=== PATIENT | male | born 1950 | race Caucasian/White ===

== ENCOUNTER 2024-08-05 00:22 | Day surgery (SDC) | payer MEDICARE, SELFPAY ==
[2024-07-23 09:50] VITALS: BMI 34.7
--- NOTE | 2024-08-04 15:00 | WPDANESEPPF ---
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 Patient Data Age: 73 Gender: M Height: 1.75 m Weight: 106.6 kg Allergies Allergy/AdvReac Type Severity Reaction Status Date / Time No Known Allergies Allergy Verified 08/05/24 06:27 Home Medications ?Medication ?Instructions ?Recorded ?Confirmed ?Type albuterol sulfate 90 mcg/actuation 2 puff inhalation PRN 07/23/24 07/23/24 History aerosol inhaler amlodipine 5 mg tablet 5 mg PO DAILY 07/23/24 08/05/24 History aspirin 81 mg tablet,delayed 81 mg PO DAILY 07/23/24 08/05/24 History release (Adult Low Dose Aspirin) celecoxib 50 mg capsule 50 mg PO DAILY 07/23/24 08/05/24 History dapagliflozin propanediol 10 mg 10 mg PO DAILY 07/23/24 08/05/24 History tablet (Farxiga) finasteride 5 mg tablet 5 mg PO DAILY 07/23/24 08/05/24 History hydrochlorothiazide 25 mg tablet 25 mg PO DAILY 07/23/24 08/05/24 History losartan 100 mg tablet 100 mg PO DAILY 07/23/24 08/05/24 History omeprazole 20 mg capsule,delayed 20 mg PO DAILY 07/23/24 08/05/24 History release rosuvastatin 20 mg tablet 20 mg PO DAILY 07/23/24 08/05/24 History sertraline 100 mg tablet 100 mg PO DAILY 07/23/24 08/05/24 History tadalafil 20 mg tablet 20 mg PO PRN sexual activity 07/23/24 07/23/24 History umeclidinium 62.5 mcg-vilanterol 1 inh inhalation DAILY 07/23/24 08/05/24 History 25 mcg/actuation powdr for inhalation (Anoro Ellipta) Patient hx anesthesia problems: none Family hx anesthesia problems: none Results Review: All pre-operative results and documents have been reviewed as part of the pre-operative evaluation. [facility] Past Medical History Medical History (Updated 08/04/24 @ 15:00 by STEFF Zapata COPD (chronic obstructive pulmonary disease) History of heart attack 2002 Hyperlipidemia Hypertension Social History Social History Smoking packs per day: 1.5 Smoking cigarettes per day: 30.0 Smoking status: Former smoker Tobacco type: cigarettes Alcohol intake: former Drinks per week: 5 Alcohol use details: quit 1979 Substance use: never Spiritual care concerns: No Anes - Eval Final PreProcedure Day of Procedure 08/04/24 15:00 Patient weight: obese Heart: regular rate and rhythm Lungs: clear to auscultation Airway: Mallampati scale class II Neurological: alert and oriented Last oral intake: >/= 8 hours ASA classification: III Emergent: no Anesthetic plan: proceed Anesthesia type and monitoring: general GIVS and standard monitoring Results Review: All pre-operative results and documents have been reviewed as part of the pre-operative evaluation. Informed Consent: The patient's anesthetic plan and its attendant risks and benefits were discussed with the patient/family/POA. Questions were solicited and answers provided to the satisfaction of the patient/family/POA.
[2024-08-05] MEDS: LACTATED RINGERS 1,000 ML 150 ML IV CONT (06:26)
[2024-08-05 06:29] VITALS: BP 136/78; PULSE 73; RESP 16; TEMP 36.1; O2SAT 95
--- NOTE | 2024-08-05 07:29 | PM.HPGS ---
History of Present Illness History of Present Illness Consent: Risks, benefits, and alternatives have been discussed and questions answered. Patient agrees to proceed with procedure. Chief complaint: screeening malignant neoplasm colon Narrative: Noah Martínez is a 73 year old male here for screening colonoscopy, last one 10 years ago Review of Systems Review of Systems: All systems reviewed & are unremarkable except as noted in HPI and below PMFSH Past Medical History Medical History (Updated 08/05/24 @ 07:30 by Cali Heard MD) Colon cancer screening COPD (chronic obstructive pulmonary disease) History of heart attack 2002 Hyperlipidemia Hypertension Social History Social History Smoking packs per day: 1.5 Smoking cigarettes per day: 30.0 Smoking status: Former smoker Tobacco type: cigarettes Alcohol intake: former Drinks per week: 5 Alcohol use details: quit 1979 Substance use: never Spiritual care concerns: No Meds Home Medications and Allergies Home Medications ?Medication ?Instructions ?Recorded ?Confirmed ?Type albuterol sulfate 90 mcg/actuation 2 puff inhalation PRN 07/23/24 07/23/24 History aerosol inhaler amlodipine 5 mg tablet 5 mg PO DAILY 07/23/24 08/05/24 History aspirin 81 mg tablet,delayed 81 mg PO DAILY 07/23/24 08/05/24 History release (Adult Low Dose Aspirin) celecoxib 50 mg capsule 50 mg PO DAILY 07/23/24 08/05/24 History dapagliflozin propanediol 10 mg 10 mg PO DAILY 07/23/24 08/05/24 History tablet (Farxiga) finasteride 5 mg tablet 5 mg PO DAILY 07/23/24 08/05/24 History hydrochlorothiazide 25 mg tablet 25 mg PO DAILY 07/23/24 08/05/24 History losartan 100 mg tablet 100 mg PO DAILY 07/23/24 08/05/24 History omeprazole 20 mg capsule,delayed 20 mg PO DAILY 07/23/24 08/05/24 History release rosuvastatin 20 mg tablet 20 mg PO DAILY 07/23/24 08/05/24 History sertraline 100 mg tablet 100 mg PO DAILY 07/23/24 08/05/24 History tadalafil 20 mg tablet 20 mg PO PRN sexual activity 07/23/24 07/23/24 History umeclidinium 62.5 mcg-vilanterol 1 inh inhalation DAILY 07/23/24 08/05/24 History 25 mcg/actuation powdr for inhalation (Anoro Ellipta) Allergies Allergy/AdvReac Type Severity Reaction Status Date / Time No Known Allergies Allergy Verified 08/05/24 06:27 Vital Signs Vital Signs - 24 hr 08/05/24 06:29 Temperature 97 F L Pulse Rate 73 Respiratory Rate 16 Blood Pressure 136/78 Pulse Oximetry 95 Oxygen Delivery Room Air Exam Const: General: comfortable and no acute distress HENMT: Face/Nose/Sinus: Normal nares present Eyes: General: appearance normal, both eyes and all related structures Neck: Neck: no JVD Resp: Auscultation: clear to auscultation bilaterally Cardio: Rate: regular rate Rhythm: regular rhythm GI: Inspection: non-distended GI Palp: Yes Soft to palpation Skin: General skin exam: normal color Neuro: Speech: normal speech Extrem: General: normal to inspection Psych: Mental Status: mental status grossly normal Assessment and Plan Assessment and plan (1) Colon cancer screening: Code(s): Z12.11 - Encounter for screening for malignant neoplasm of colon Status: Acute Assessment and Plan: colonoscopy
[2024-08-05 07:46] VITALS: BP 97/67; PULSE 68; RESP 21; O2SAT 95
[2024-08-05 07:56] VITALS: BP 113/71; PULSE 71; RESP 23; O2SAT 96
[2024-08-05 08:06] VITALS: BP 127/73; PULSE 66; RESP 23; O2SAT 96
== END 2024-08-05 08:14 | disposition home or self-care (01) ==
PROVIDERS: PCP Family Medicine; Visit Provider Internal Medicine Gastroenterology
PROC: 0DJD8ZZ Inspection of Lower Intestinal Tract, Via Natural or Artificial Opening Endoscopic (ICD-10-PCS; CPT 45378; principal; 2024-08-05 07:30)
DX: Z12.11 Encounter for screening for malignant neoplasm of colon (principal); K64.8 Other hemorrhoids; K57.30 Diverticulosis of large intestine without perforation or abscess without bleeding; E78.5 Hyperlipidemia, unspecified; I10 Essential (primary) hypertension; J44.9 Chronic obstructive pulmonary disease, unspecified; I25.2 Old myocardial infarction; E66.9 Obesity, unspecified; Z68.34 Body mass index [BMI] 34.0-34.9, adult; Z79.82 Long term (current) use of aspirin; Z79.51 Long term (current) use of inhaled steroids; Z79.84 Long term (current) use of oral hypoglycemic drugs; Z87.891 Personal history of nicotine dependence
CPT/HCPCS: G0121; J2003; J2704; J7120

== ENCOUNTER 2025-03-10 13:20 | Outpatient (CLI) | payer MEDICARE, SELFPAY ==
--- OUTSIDE RECORDS SUMMARY | 2024-06-15 04:00 | XMS_ITS ---
Author Organization [facility] Address [address] [place] [address] Care Team Providers Care Cardiologist Name Role Phone Dr. Dinorah Wakefield Primary Care Provider [phone] Migration, Provider Unavailable Unavailable Allergies No Known Allergies REASON FOR VISIT EMR-[facility] Medications Medication SIG (Take, Route, Frequency, Duration) Notes Start Date End Date Status Sertraline HCl 100 MG Tablet 1 Oral every day; Duration: 03/18/2024 09/13/2024 Active diazePAM 5 MG Tablet 1-2 Oral every day; Duration: 0 03/10/2024 Active Farxiga 10 MG Tablet 1 Oral every day; Duration: 05/05/2024 10/31/2024 Active Celecoxib 50 MG Capsule 1 Oral every day ; Duration: 03/18/2024 09/13/2024 Active amLODIPine Besylate 5 MG Tablet 1 Oral every day; Duration: 03/18/2024 09/13/2024 Active Rosuvastatin Calcium 20 MG Tablet 1 Oral every day; Duration: 03/18/2024 09/13/2024 Active Losartan Potassium 100 MG Tablet 1 Oral every day; Duration: 03/18/2024 09/13/2024 Active Albuterol Sulfate HFA 108 (90 Base) MCG/ACT Aerosol Solution Inhalation; Duration: 0 12/19/2023 Active hydroCHLOROthiazide 25 MG Tablet 1 Oral every day; Duration: 05/05/2024 10/31/2024 Active Tadalafil 20 mg Tablet 1; Duration: 0 12/19/2023 Active Breztri Aerosphere inhalation; Duration: 0 *Pick strength-form from [facility] for eRX* 12/19/2023 Active Omeprazole 20 MG Capsule Delayed Release Oral; Duration: 0 03/10/2024 Active Aspirin 81 MG Tablet Chewable Oral; Duration: 0 10/09/2023 Active Social History Social History Additional Details Category Social Info Options Details Migrated Social History Migrated Social History Living arrangements:House , Employment:Retired , Tobacco history:Former smoker ,notes : 1.5 PPD for 35 years. Quit in 1999 , Number of years using tobacco:35 , Alcohol history :: ,notes : Not a drink , Date ceased smokin , Marital status: Encounters Encounter Location Date Provider Diagnosis [facility] [address] [place] [address] 06/15/2024 Provider Migration Plan Of Treatment Next Appt Details Provider Name:Dr. Dinorah kirby, 03/01/2026 10:30:00 AM, [facility] [address], [place], [address], [phone] Provider Name:Dr. Dinorah kirby, 03/03/2026 09:00:00 AM, [facility] [address], [place], [address], [phone] Progress Notes * Noah MIKEDOB:1950 (74 yo M)Acc No.[id number]:06/15/2024 Patient: Noah CIFUENTES :1950 A ge:73 Y S ex:Male Phone: Address:[address] [place] [address], [phone] Subjective: * Chief Complaints: * E MR-Charles * Surgical History: knee surgery ,notes : knee replacement Cardiac Catherization ,notes : 09/19/2006- 90% OM1, very small vessel; 50-60% proximal to mid sequential stenosis in the LAD; LI in RCA hip surgery ,notes : Hip replacement 1989 (after 1975 accident caused hip problem) & 1999 was 2nd full replacement. 2006 revision, all on the LEFT. Went to [facility] Dr. Padilla. Colonoscopy ,notes : Normal results, over 10 years ago. * Family History: Sharon edmond: Aneurysms. * Social History: M igrated Social History: M igrated Social History: Living arrangements:House,Employment:Retired,Tobacco history:Former smoker ,notes : 1.5 PPD for 35 years. Quit in 1999,Number of years using tobacco:35,Alcohol history :: ,notes : Not a drink,Date ceased smokin,Marital status:. * Medications: T akingamLODIPine Besylate 5 MG Tablet 1 Oral every day , stop date 09/13/2024Rosuvastatin Calcium 20 MG Tablet 1 Oral every day , stop date 09/13/2024reztri Aerosphere inhalation , Notes to Pharmacist: *Pick strength- form from [facility] for eRX*Celecoxib 50 MG Capsule 1 Oral every day , stop date 09/13/2024Tadalafil 20 mg Tablet 1 Farxiga 10 MG Tablet 1 Oral every day , stop date 10/31/2024hydroCHLOROthiazide 25 MG Tablet 1 Oral every day , stop date 10/31/2024Omeprazole 20 MG Capsule Delayed Release Oral Aspirin 81 MG Tablet Chewable Oral diazePAM 5 MG Tablet 1-2 Oral every day Albuterol Sulfate HFA 108 (90 Base) MCG/ACT Aerosol Solution Inhalation Losartan Potassium 100 MG Tablet 1 Oral every day , stop date 09/13/2024Sertraline HCl 100 MG Tablet 1 Oral every day , stop date 09/13/2024Taking amLODIPine Besylate 5 MG Tablet 1 Oral every day , stop date 09/13/2024Taking Rosuvastatin Calcium 20 MG Tablet 1 Oral every day , stop date 09/13/2024Taking Breztri Aerosphere inhalation , Notes to Pharmacist: *Pick strength-form from [facility] for eRX*Taking Celecoxib 50 MG Capsule 1 Oral every day , stop date 09/13/2024Taking Tadalafil 20 mg Tablet 1 Taking Farxiga 10 MG Tablet 1 Oral every day , stop date 10/31/2024Taking hydroCHLOROthiazide 25 MG Tablet 1 Oral every day , stop date 10/31/2024Taking Omeprazole 20 MG Capsule Delayed Release Oral Taking Aspirin 81 MG Tablet Chewable Oral Taking diazePAM 5 MG Tablet 1-2 Oral every day Taking Albuterol Sulfate HFA 108 (90 Base) MCG/ACT Aerosol Solution Inhalation Taking Losartan Potassium 100 MG Tablet 1 Oral every day , stop date 09/13/2024Taking Sertraline HCl 100 MG Tablet 1 Oral every day , stop date 09/13/2024 * Allergies: N .K.D.A. * * Date:
--- OUTSIDE RECORDS SUMMARY | 2025-03-10 13:26 | XMS_ITS | Patient Health Record ---
Author Organization [facility] Address [address] [place] [id number] Care Team Providers Care Senior Infrastructure Architect Name Role Phone Dr. Dinorah Wakefield Primary Care Provider [phone] Leona Springer Unavailable [phone] Migration, Provider Unavailable Unavailable Allergies No Known Allergies Results Component Value Reference Range Flag Notes Muscle Specific Kinase (MuSK ) IgG Ab CBA, with Rflx-ARUP Reviewed date:03/29/2024 12:00:00 AM Interpretation: Performing Lab: Notes/Report: Muscle Specific Kinase (MuSK) IgG Ab CBA, with Rflx See Below Myasthenia Gravis Reflexive Panel-ARUP Reviewed date:03/29/2024 12:00:00 AM Interpretation: Performing Lab: Notes/Report: Myasthenia Gravis Reflexive Pnl See Below T4 Free Reviewed date:03/02/2025 09:38:17 PM Interpretation: Performing Lab: Notes/Report: Test Performed by: [place] [id number] Lab Systems Analyst: Fredo White DO T4 Free 0.60 0.60-1.70 ng/dL CBC w Auto Diff Reviewed date:03/02/2025 09:38:18 PM Interpretation: Performing Lab: Notes/Report: Test Performed by: [place] [id number] Lab Systems Analyst: Fredo White DO WBC 4.7 4.0-11.7 K/mcL RBC 5.49 4.28-5.56 x10*6/mcL Hgb 15.7 13.0-17.0 g/dL Hct 47.2 38.1-48.9 % MCV 86.0 83.4-98.1 fL MCH 28.6 27.0-34.2 pg MCHC 33.3 31.8-35.3 g/dL RDW 14.4 12.0-16.4 % Platelets 185 149-393 K/mcL MPV 9.3 7.0-11.0 fL Segs Man 65.0 45.3-79.0 % Band Man 2.0 0.0-6.0 % Lymph Man 17.0 11.8-45.9 % Monocyte Man 7.0 4.4-12.9 % Eos Man 5.0 0.0-6.3 % Basophil Man 2.0 0.0-1.0 % H Neut Absolute Manual 3.1 Lymph Absolute Manual 0.8 [place] Absolute Manual 0.3 Eos Absolute Manual 0.2 Baso Absolute Manual 0.1 [place] Man 2.0 0.0-0.0 % H Comprehensive Metabolic Pane l Reviewed date:03/02/2025 09:38:18 PM Interpretation: Performing Lab: Notes/Report: Test Performed by: [place] [address] Lab Systems Analyst: Fredo White DO Glucose Lvl 97 74-109 mg/dL ADA risk stratification for diabetes <100 mg/dL = Normal 100-125 mg/dL = Increased risk for future diabetes >=126 mg/dL = Diabetes, if on more than one testing occasion BUN 25 7-25 mg/dL Creatinine Lvl 0.91 0.70-1.30 mg/dL eGFR CKD-EPI 88 >=90 mL/min/1.73 m2 L The CKD-EPI equation is validated in individuals 18 years of age and older. It is less accurate in patients with extremes of muscle mass, restriction of dietary protein, ingestion of creatine, extra-renal metabolism of creatinine, or treatment with medications that affect renal tubular creatinine secretion. GFR Categories in Chronic Kidney Disease (CKD) GFR GFR (mL/min/1.73 Category: square meters): Interpretation: G1 90 or greater Normal or high* G2 60-89 Mild decrease* G3a 45-59 Mild to moderate decrease G3b 30-44 Moderate to severe decrease G4 15-29 Severe decrease G5 14 or less Kidney failure *In the absence of evidence of kidney damage, neither GFR category G1 nor G2 fulfill the criteria for CKD (Kidney Int Suppl 2013;3:1-150) Calcium Lvl 9.2 8.6-10.3 mg/dL Sodium Lvl 139 136-145 mmol/L Potassium Lvl 3.9 3.5-5.1 mmol/L Chloride Lvl 105 98-107 mmol/L CO2 29 21-31 mmol/L Anion Gap 4.9 <=16.0 mmol/L Alk Phos 73 34-104 unit/L Bilirubin Total 0.5 0.3-1.0 mg/dL Albumin Lvl 4.3 3.5-5.2 g/dL Protein Total 6.7 6.4-8.9 g/dL Albumin/Globulin Ratio 1.8 1.1-2.5 ALT 16 7-52 unit/L AST 18 13-39 unit/L Lipid Panel {Chol, Trig, HDL , LDL} Reviewed date:03/02/2025 09:38:18 PM Interpretation: Performing Lab: Notes/Report: Test Performed by: [place] [address] Lab Systems Analyst: Fredo White DO Cholesterol Total 162 <=199 mg/dL Triglycerides 166 0-149 mg/dL H Triglyceride Reference Ranges: <150 mg/dL Normal 150 - 199 mg/dL Borderline High 200 - 499 mg/dL High >=500 mg/dL Very High LDL 92 <=100 mg/dL LDL Optimal: <100 Near or above optimal: 100-129 Borderline high: 130-159 High: 160-189 Very high: >=190 Coronary heart disease risk factors should be considered when determining LDL goals. Please refer to ATPIII guidelines for further information. If LDL is not calculated, please call the lab to add on the direct LDL methodology, if desired. HDL 37 23-92 mg/dL Non HDL Cholesterol 125 <=130 mg/dL Chol/HDL 4 0-5 Thyroid Stimulating Hormone Reviewed date:03/02/2025 09:38:18 PM Interpretation: Performing Lab: Notes/Report: Test Performed by: [place] [id number] Lab Systems Analyst: Fredo White DO TSH 1.92 0.45-5.33 mcIU/mL Vitamin B12 Reviewed date:03/02/2025 09:38:18 PM Interpretation: Performing Lab: Notes/Report: Test Performed by: [place] [address] [address] Lab Systems Analyst: Fredo White DO Vitamin B12 Lvl 246 180-914 pg/mL Vitamin B12 Interpretation: Normal Range: 180-914 pg/mL Indeterminate: 140-180 pg/mL Deficient: <140 pg/mL PSA Annual Screening Reviewed date:03/02/2025 09:38:18 PM Interpretation: Performing Lab: Notes/Report: Test Performed by: [place] [address] Lab Systems Analyst: Fredo White DO PSA Total 8.83 0.00-4.00 ng/mL H CT Scan : Chest without cont rast Reviewed date:01/26/2025 03:41:47 PM Interpretation: Performing Lab: Notes/Report: Electrocardiogram (EKG) Reviewed date:03/07/2025 01:56:32 PM Interpretation:Abnormal Performing Lab: Notes/Report: Abnormal Reason For Referral Reason Dr. Angy Chavis is previous patient. Diagnosis 1 Elevated PSA (R97.20 ) Referral Organization [facility] Referring Provider First Name Dr. Copeland Referring Provider Last Name [place] Referring Provider [facility] Referred Provider Specialty Urology Referral Priority Routine Medications Medication SIG (Take, Route, Frequency, Duration) Notes Start Date End Date Status Finasteride 5 MG Tablet 1 tablet Orally Once a day; Duration: 90 days Active Tadalafil 20 mg Tablet 1; Duration: 0 12/19/2023 Active Sertraline HCl 100 MG Tablet 1 Oral ever y day; Duration: 90 Active hydroCHLOROthiazide 25 MG Tablet TAKE 1 TABLET BY MOUTH EVERY DAY Orally Once a day; Duration: 90 days Active Anoro Ellipta 62.5-25 MCG/AC T Aerosol Powder Breath Activated 1 puff Inhalation Once a day Active amLODIPine Besylate 5 MG Tablet 1 tablet Orally Once a day; Duration: 90 days Active Albuterol Sulfate HFA 108 (9 0 Base) MCG/ACT Aerosol Solution Inhalation; Duration: 0 12/19/2023 Active Omeprazole 20 MG Capsule Delayed Release Oral; Duration: 0 03/10/2024 Active CeleBREX 50 MG Capsule 1 capsule Orally Once a day; Duration: 90 days Active Aspirin 81 MG Tablet Chewable Oral; Duration: 0 Active Farxiga 10 MG Tablet 1 Oral every day; Duration: 90 Active Losartan Potassium 100 MG Tablet TAKE 1 TABLET BY MOUTH EVERY DAY Orally Once a day; Duration: 90 days Active Rosuvastatin Calcium 20 MG Tablet TAKE 1 TABLET BY MOUTH EVERY DAY Orally Once a day; Duration: 90 days Active Immunizations Vaccine Route Administration Date Status Comme nts Influenza, high dose seasonal IM Intramuscular 05/13/2024 Administered ,sourcename : N ew immunization record ,immstatus : Complete Influenza, seasonal, injectable, preservative free, 3 yrs and above Unknown 06/11/2023 Administered ,sourcename : Pharmacy Source VFC Code: : Moderna Covid-19 Vaccine 1st dose Unknown 08/17/2020 Administered ,sourcename : Pharmacy Source VFC Code: : Moderna Covid-19 Vaccine 1st dose Unknown 09/15/2020 Administered ,sourcename : Pharmacy Source VFC Code: : Moderna Covid-19 Vaccine 1st dose Unknown 07/04/2021 Administered ,sourcename : Pharmacy Source VFC Code: : Pfizer-Biontech Covid-19 Vaccine 1st dose IM Intramuscular 05/13/2024 Administered ,sourcename : N ew immunization record ,immstatus : Complete Pneumococcal conjugate PCV 13 Unknown 06/26/2016 Administered ,sourcename : Pharmacy Source VFC Code: : Pneumococcal polysaccharide PPV23 Unknown 06/16/2016 Administered ,sourcename : Pharmacy Source VFC Code: : Tdap Unknown 02/12/2018 Administered ,sourcename : Pharmacy Source VFC Code: : Zoster Unknown 04/05/2020 Administered shingrix ,sourcename : Pharmacy Source VFC Code: : Zoster Unknown 06/15/2020 Administered shingrix ,sourcename : Pharmacy Source VFC Code: : Social History Social History Additional Details Category Social Info Options Details Migrated Social History Migrated Social History Employment:Retired , Marital status: , Tobacco history:Former smoker ,notes : 1.5 PPD for 35 years. 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) Active confirmed Problem Essential hypertensi on (20091114) Essential (primary) hypertension (I10) Active confirmed Problem Atherosclerotic hear t disease of [place] coronary artery without angina pectoris (666691752503133) Atherosclerotic heart disease of [place] coronary artery without angina pectoris (I25.10) Active confirmed Problem Old myocardial infarction (5080140) Old myocardial infarction (I25.2) Active confirmed Problem Vitiligo (26404115) Vitiligo (L80) Active confirmed Problem Osteoarthritis (966946962) Polyosteoarthriti s, unspecified (M15.9) Active confirmed Problem Cervical spondylosis without myelopathy (814690628) Spondylosis without myelopathy or radiculopathy, cervical region (M47.812) Active confirmed Problem Spinal stenosis in cervical region (20431680) Spinal stenosis, cervical region (M48.02) Active confirmed Problem Displacement of lumb ar intervertebral disc without myelopathy (45864042) Other intervertebral disc displacement, lumbar region (M51.26) Active confirmed Problem Pure hypercholesterolemia (853939161) Pure hypercholesterole monika, unspecified (E78.00) Active confirmed Problem Body mass index 30.0 0 to 34.99 (394221985893105) Body mass index (BMI) 34.0-34.9, adult (Z68.34) Active confirmed Problem Lumbosacral spondylosis without myelopathy (85062689) Spondylosis without myelopathy or radiculopathy, lumbar region (M47.816) Active confirmed Problem 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 Problem Enlarged prostate (952042025) Enlarged prostate without lower urinary tract symptoms (N40.0) Active confirmed Problem Nicotine dependence (85775351) Personal history of nicotine dependence (Z87.891) Active confirmed Problem Erectile dysfunction (disorder) (906271030) Male erectile dysfunction, unspecified (N52.9) Active confirmed Problem Nail dystrophy (17933748) 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) Active confirmed Problem Disorder of nasal sinus (disorder) (1808023) Other specified disorders of nose and nasal sinuses (J34.89) Active confirmed Vital Signs Heart Rate 63 /min 03/06/2025 Temperature 97.2 degrees Fahrenheit 03/06/2025 Respiratory Rate 18 /min 03/06/2025 Height-cm 175.26 cm 03/06/2025 Oximetry 94 % 03/06/2025 Blood pressure diastolic 66 mm Hg 03/06/2025 Weight-kg 107.5 kg 03/06/2025 Height 69.00 in 03/06/2025 Blood pressure systolic 116 mm Hg 03/06/2025 Weight 237 lbs 03/06/2025 BMI 34.99 kg/m2 03/06/2025 Procedures Procedure Date Ordered Date Performed Result Body Sit e Colonoscopy 08/05/2024 08/05/2024 Normal; no need to repea t Encounters Encounter Location Date Provider Diagnosis [address] [address] 03/10/2024 Dr. Dinorah Wakefield Paresthesia of skin R20.2 ; Pain in left arm M79.602 ; Heteronymous bilateral field defects H53.47 ; Cervicalgia M54.2 and Headache, unspecified R51.[address] [address] 03/25/2024 Provider Migration Paresthesia of skin R20.2 ; Spondylosis without myelopathy or radiculopathy, cervical region M47.812 and Spinal stenosis, cervical region M48.[address] [address] 04/14/2024 Leona Springer Other specified disorders of nose and nasal sinuses J34.89 and Cough, unspecified R05.[address] [address] 05/13/2024 Dr. Dinorah Wakefield Encounter for immunization Z23 [address] [address] 03/06/2025 Dr. Dinorah Wakefield Encounter for general adult medical examination without abnormal findings Z00.00 ; Prediabetes R73.03 ; Elevated PSA R97.20 ; Urinary frequency R35.0 ; Essential (primary) hypertension I10 ; Vitamin B12 deficiency E53.8 ; Sinus arrhythmia I49.8 ; Atherosclerotic heart disease of [place] coronary artery without angina pectoris I25.10 ; Hyperlipidemia, unspecified E78.5 ; Spinal stenosis, cervical region M48.02 ; Bronchiectasis, uncomplicated J47.9 ; Renal cyst N28.1 ; Obesity (BMI 30.0-34.9) E66.811 and Mild depression F32.A [address] [address] 06/14/2024 Provider Migration [address] [address] 06/15/2024 Provider Migration [address] [address] 10/16/2024 Dr. Dinorah Wakefield [address] [address] 10/17/2024 Dr. Dinorah Wakefield [address] [address] 10/17/2024 Dr. Dinorah Wakefield [address] [address] 10/24/2024 Dr. Dinorah Wakefield [address] [address] 12/22/2024 Dr. Dinorah Wakefield [address] [address] 03/02/2025 Dr. Dinorah Wakefield Hyperlipidemia, unspecified E78.5 ; Essential (primary) hypertension I10 ; Encounter for general adult medical examination without abnormal findings Z00.00 and Screening PSA (prostate specific antigen) Z12.[address] [address] 02/23/2025 Dr. Dinorah Wakefield [address] [address] 02/26/2025 Dr. Dinorah Wakefield Assessments Encounter Date Diagnosis (ICD Code) Assessment Notes Treatment Notes Treatment Clinical Notes Section Notes 03/02/2025 Hyperlipidemia, unspecified (ICD-10 - E78.5) 03/06/2025 Encounter for general adult medical examination without abnormal findings (ICD-10 - Z00.00) PHQ-9 done today. 5 mins spent reviewing and discussing answers. REc RSV vaccine 40 mins spent with patient today. 03/06/2025 Prediabetes (ICD-10 - R73.03) Discussed prediabetes diagnosis. Recommend lower carb diet, higher protein diet, exercise and routines, weightlifting exercise, as appropriate for age and physique, as well as staying hydrated. Recommended recheck labs in proximally six months at the next checkup. Discussed hemoglobin A1c is 6.5 or higher is diabetes and we should try to regress the condition into the normal sugar range for averages. 05/13/2024 Encounter for immunization (ICD-10 - Z23) 04/14/2024 Other specified disorders of nose and nasal sinuses (ICD-10 - J34.89) 04/14/2024 Cough, unspecified (ICD-10 - R05.9) 03/25/2024 Spondylosis without myelopathy or radiculopathy, cervical region (ICD-10 - M47.812) 03/25/2024 Spinal stenosis, cervical region (ICD-10 - M48.02) 03/25/2024 Paresthesia of skin (ICD-10 - R20.2) 03/10/2024 Heteronymous bilateral field defects (ICD-10 - H53.47) 03/10/2024 Cervicalgia (ICD-10 - M54.2) 03/10/2024 Pain in left arm (ICD-10 - M79.602) 03/10/2024 Paresthesia of skin (ICD-10 - R20.2) 03/10/2024 Headache, unspecified (ICD-10 - R51.9) 03/06/2025 Elevated PSA (ICD-10 - R97.20) Elevated PSA: - Elevated PSA despite finasteride therapy, increased from prior values, concerning for possible underlying pathology. - Ordered repeat PSA at hospital-based lab for confirmation due to possible lab error. - Referred to urology (Dr. Vang) for further evaluation, including possible prostate MRI and additional workup. 03/02/2025 Essential (primary) hypertension (ICD-10 - I10) 03/02/2025 Encounter for general adult medical examination without abnormal findings (ICD-10 - Z00.00) 03/06/2025 Urinary frequency (ICD-10 - R35.0) Bladder dysfunction/urinary urgency and incomplete emptying: - Urinary urgency and incomplete bladder emptying, likely multifactorial including prostatic enlargement and medication effects. - Advised to discontinue hydrochlorothiazide and monitor blood pressure; will reassess at follow-up. - Discussed possible initiation of tamsulosin if indicated by urology. - Referred to urology for further evaluation. - Discussed caffeine intake and medication effects as contributing factors. - Advised to monitor symptoms and report any worsening. -On Finasteride - needd to make sure that he doesn't have prostate cancer. 03/06/2025 Essential (primary) hypertension (ICD-10 - I10) Stopping HCTZ and should monitor when here for B12 shots and also should get meter at home. Goal less than 130/80. 03/02/2025 Screening PSA (prostate specific antigen) (ICD-10 - Z12.5) 03/06/2025 Vitamin B12 deficiency (ICD-10 - E53.8) B12 deficiency: - B12 deficiency contributing to fatigue and possible cognitive symptoms. - Administered B12 injection today. Plan for weekly B12 injections for 4 weeks. - Improvement in energy and cognitive symptoms expected with treatment. Short-term memory concerns: - Short-term memory impairment possibly related to B12 deficiency and/or mild depression. - Addressing B12 deficiency with injections. Discussed potential benefit of wellbutrin for cognitive symptoms if indicated. 03/06/2025 Sinus arrhythmia (ICD-10 - I49.8) Irregular heart rhythm: - Intermittent irregular heart rhythm noted on blood pressure measurement, asymptomatic. - Performed EKG during visit for further evaluation. -EKG shows sinus arrhythmia. 03/06/2025 Atherosclerotic heart disease of [place] coronary artery without angina pectoris (ICD-10 - I25.10) 03/06/2025 Hyperlipidemia, unspecified (ICD-10 - E78.5) 03/06/2025 Spinal stenosis, cervical region (ICD-10 - M48.02) Cervical spine arthropathy with foraminal stenosis, spondylolisthesis, and kyphosis: - Mechanical neck pain and cervical radiculopathy due to advanced degenerative changes, with no current indication for surgical intervention. - Continue conservative management with physical therapy and neck traction as needed; patient may do physical therapy as many times a year as needed. - Monitor for worsening symptoms such as arm weakness, tingling, severe neck pain, or balance issues; if present, repeat MRI and consider neurosurgical evaluation. - Offered option of steroid injections for pain if needed. - Advised to avoid falls and neck trauma. 03/06/2025 Bronchiectasis, uncomplicated (ICD-10 - J47.9) Bronchiectasis and stable lung nodules: - Stable bronchiectasis with no acute pulmonary findings. - Continue current management with puller over. No acute intervention required. -continue anoro and pulm f/u. -REcent CT was OK with no acute changes 03/06/2025 Renal cyst (ICD-10 - N28.1) Simple right kidney cyst: - Simple renal cyst, decreased in size, not concerning for malignancy. - No further imaging or monitoring required. Incicentally found on CT chest f/u imaging. 03/06/2025 Obesity (BMI 30.0-34.9) (ICD-10 - E66.811) Weight management and possible prediabetes: - Ongoing weight management difficulties, possible progression from prediabetes to diabetes. - Ordered A1c and thyroid labs to assess glycemic control and thyroid function. - Discussed behavioral strategies for weight loss including slowing eating and drinking water before meals. - Discussed pharmacologic options including wellbutrin, pending lab results. - Offered B12 injections to improve energy and potentially aid weight loss. - Patient declined weight loss medications at this time. 03/06/2025 Mild depression (ICD-10 - F32.A) Mild depression: - Mild depression, stable on sertraline, with PHQ-9 score of 7. - Discussed possible addition of wellbutrin to address mood, appetite, and focus, pending lab results and patient preference. 03/06/2025 Other DON:Based on our discussion, I have outlined the following instructions for you: - Consider physical therapy again for your neck as needed. You can do physical therapy as many times as you need during the year. - Watch for any new or worsening symptoms such as weakness in your arms, tingling, severe neck pain, or problems with balance. If you notice any of these, let me know right away so we can consider repeat MRI on your neck. - If your neck pain becomes hard to manage, you can ask about getting a steroid injection to help with the pain through pain management. - Be careful to avoid falling or hurting your neck. - Keep following your current lung care plan with your lung specialist. No new treatments are needed right now. - A kidney cyst was noted on your chest CT - it seems to have decreased and shouldn't need to be followed up on. - Get the blood tests that were ordered to check your blood sugar and thyroid. - Try to eat more slowly and drink water before meals to help with weight loss. - If you feel you need more help with weight loss, you can ask about other options, including certain medications, after your lab results are ready. - You can get B12 injections to help with your energy and possibly with weight loss. We gave you one today and you need to return WEEKLY for 3 more weeks and then will go to once monthly. Your levels were low and replacement could help with memory as well - Get your PSA blood test repeated at the hospital lab to double-check your results. I suggest [facility] or [facility] Bishop in [place]. - See a urology specialist for further evaluation, which may include additional tests such as a prostate MRI, for your elevated PSA. - Stop taking hydrochlorothiazide and keep track of your blood pressure. - If your urology specialist thinks it is needed, you may start a medication called tamsulosin. We discussed this but will wait until you see urology. - Be aware that caffeine and some medications can affect your bladder symptoms. - Pay attention to your symptoms and let your healthcare team know if they get worse. - An EKG was done during your visit to check your heart rhythm. -When you come for B12 shots, we should check your blood pressure. Goal is less than 130/80. If it's elevated off of the hydrochlorothiazide, then we will have to change your BP meds. Next appointment(s): - Follow-up appointment in about a week for another B12 shot. Plan Of Treatment Pending Test Test Name Order Date Hemoglobin A1c 03/06/2025 Magnesium, Serum 03/06/2025 Thyroxine (T4) Free, Direct, S TSH 03/06/2025 PSA, total 03/06/2025 Hemoglobin A1c {Glycosylated} 03/02/2025 Vitamin D 25 Hydroxy 03/02/2025 Next Appt Details Provider Name:Dr. Dinorah kirby, 03/01/2026 10:30:00 AM, [address], [place], [address], [phone] Provider Name:Dr. Dinorah kirby, 03/03/2026 09:00:00 AM, [address], [place], [address], [phone] Insurance Providers Payer Name Payer Address Payer Phone Subscriber Number Group Number Insured Name Patient Relationship to Insured Coverage Start Date Coverage End Date [employer] Attn Claims Department [address] [address] [place] [address] [id number] Noah Martínez Self - patient is the insured Medications Administered Medication Instructions Date of Administration Dosage Notes B12 03/06/2025 1000 ug Medical (General) History Medical History History ICD Code Obesity, unspecified E66.9 Hyperlipidemia, unspecified E78.5 Essential (primary) hypertension I10 Atherosclerotic heart diseas e of [place] coronary artery without angina pectoris I25.10 Old myocardial infarction I25.2 Alopecia universalis L63.1 Vitiligo L80 Polyosteoarthritis, unspecified M15.9 Personal history of nicotine dependence Z87.891 Heteronymous bilateral field defects H53 .47 Male erectile dysfunction, unspecified N 52.9 Pure hypercholesterolemia, unspecified E 78.00 Surgical History Surgery Date(Month/Year) hip surgery ,notes : Hip rep lacement 1989 (after 1975 accident caused hip problem) & 1999 was 2nd full replacement. 2007 revision, all on the LEFT. Went to [facility] Dr. Padilla. knee surgery ,notes : knee replacement Cardiac Catherization ,notes : 09/19/2006- 90% OM1, very small vessel; 50-60% proximal to mid sequential stenosis in the LAD; LI in RCA Colonoscopy ,notes : Normal results, paul desai 10 years ago.
--- OUTSIDE RECORDS SUMMARY | 2025-03-10 13:26 | XMS_ITS | Clinical Summary ---
Author Organization [facility] Address [address] [place] [address] Care Team Providers Care Nanoscience Technician Name Role Phone Mitra Ibarra INDUSTRIAL TRACTOR DRIVER-HORSE SHOW MANAGER Primary Care Provider [phone] Source Comments [facility],non-owned Affiliates and Associated Physician Practices is amultiple site organization consisting of ambulatory clinics and hospital sitesin [place], [place], [place] and [place]. This disclosure is being madepursuant to the Care Everywhere program and may not contain all information available regarding this patient. Last updated 18.[facility] Allergies No known active allergies Medications * Be aware that medications may not be up to date on this document. Alwaysverify current medications with the patient. amLODIPine (NORVASC) 5 MG tablet Take 5 mg by mouth once daily Active rosuvastatin (CRESTOR) 10 MG tablet Take 10 mg by mouth once daily Active finasteride (PROSCAR) 5 MG tablet Take 5 mg by mouth once daily Active sertraline (ZOLOFT) 100 MG tablet Take 100 mg by mouth once daily Active aspirin (ASPIRIN) 81 MG tablet Take 81 mg by mouth once daily Active losartan-hydroCH LOROthiazide (HYZAAR) 100-12.5 MG tablet Take 1 tablet by mouth once daily Active Active Problems Problem Noted Date Diagnosed Date Non morbid obesity due to excess calories 2019 Coronary artery disease invo lving [place] coronary artery of [place] heart without angina pectoris 08/14/2019 Overview (08/14/2019): Echocardiogram 10/04/2018: 1. Normal left ventricular cavity size with mild concentric hypertrophy. There is hyperdynamic left ventricular systolic function with ejection fraction measured by Oquendo's biplane method at 73%. Normal left ventricular diastolic function for age as measured by tissue Doppler/Mitral Doppler indices. 2. Mildly dilated right ventricle with normal right ventricular systolic function. 3. Normal right ventricular systolic pressure with estimated Peak RVSP of 27.3 mmHg. 4. Normal inferior vena cava appearance and respiratory collapse. 5. No hemodynamically significant valvular abnormalities seen on Doppler exam. Cardiac PET Stress 10/04/2018: 1. The patient's test results are abnormal, and consistent with mild reversible ischemia in the distribution of the left circumflex/OM territory as described above. 2. Normal global LV systolic function. 3. Coronary Flow Rush: 2.36 (coronary flow reserve > 2.0 is considered to be normal). 4. Total Agatston score (calcium score) is 1396, which places the patient at the 92nd percentile of an aged and gender matched cohort. 5. No priors for comparison. 6. Please refer to separately reported ECG report from the same day regarding ECG and hemodynamic findings. Cardiac catheterization 09/19/2006: 1. 90% OM1, very small vessel < 2 mm in diameter. 2. 50-60% proximal to mid sequential stenosis in the LAD 3. LI in the RCA Old DC (myocardial infarction) 08/14/2019 Essential hypertension 08/14/2019 Hypercholesteremia 08/14/2019 Family History Medical History Relation Name Comments Other Brother 1 pancreatitis Cancer - Other Father Other Mother pancreatitis Other Sister pancreatitis Relation Name Status Comments Brother 1 Alive Brother 2 Alive Brother 3 Alive Brother 4 Father Maternal Grandfather Maternal Grandmother Mother Paternal Grandfather Paternal Grandmother Sister Social History Tobacco Use Types Packs/Day Years Used Date Smoking Tobacco: Former Cigarettes 1 35 Comments:Quit 20 years ago Alcohol Use Standard Drinks/Week Comments Not Currently 0 (1 standard drink = 0.6 oz pur e alcohol) Quit 20 years ago Sex and Gender Information Value Date Recorded Sex Assigned at Not on file Legal Sex Male 6:10 PM 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 Gender Identity Not on file Sexual Orientation Not on file Last Filed Vital Signs Vital Sign Reading Time Taken Comments Blood Pressure 138/76 08/19/2019 12:23 PM 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 Pulse 63 08/19/2019 12:23 PM 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 Temperature - - Respiratory Rate - - Oxygen Saturation 95% 08/19/2019 12:23 PM 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 Inhaled Oxygen Concentration - - Weight 109.3 kg (241 lb) 08/19/2019 12:23 PM 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 Height 175.3 cm (5' 9) 08/19/2019 12:23 PM 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 Body Mass Index 35.59 08/19/2019 12:23 PM 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 Plan of Treatment Health Maintenance Due Date Last Done Comments COLOGUARD (AGES 45-75) - COLON CA SCREENING 1949 COLON MONITORING 1949 COLONOSCOPY - COLON CA SCREENING 1949 CT COLONOGRAPHY - COLON CA SCREENING 1949 Colorectal Cancer Screening 1949 FIT - COLON CA SCREENING 1949 FLEX SIG - COLON CA SCREENING 1949 HEPATITIS C SCREENING 11/09/1967 DTAP/TDAP/TD VACCINES (1 - Tdap) 1968 PNEUMOCOCCAL VACCINE 50+ (1 of 1 - PCV) 11/14/1999 ZOSTER VACCINE (1 of 2) 11/14/1999 COVID-19 VACCINE (3 - season) 2024 09/15/2020, 08/18/2020 DEPRESSION SCREENING 07/16/2024 MEDICARE AWV CALENDAR YEAR 2024 Respiratory Syncytial Virus (RSV) Vaccine Pt: or over 60 yrs (1 - 1-dose 75+ series) 2024 SCREENING FOR DIABETES 01/03/2025 01/03/2022, 2021 INFLUENZA VACCINE (#1) 2025 0, 05/21/2019, 05/10/2018, Additional history exists HEPATITIS B VACCINE Aged Out No longe r eligible based on patient's age to complete this topic HIB VACCINE Aged Out No longer eligi ble based on patient's age to complete this topic HPV VACCINE Aged Out No longer eligi ble based on patient's age to complete this topic MENINGOCOCCAL (Group B) VACCINE SHARED DECISION-MAKING Aged Out No longer eligible based on patient's age to complete this topic MENINGOCOCCAL GROUPS A/C/Y/W VACCINE Aged Out No longer eligible based on patient's age to complete this topic Insurance [facility] MANAGED MEDICARE ADV Care Teams Nanoscience Technician Relationship Specialty Start Date End Date Mitra Ibarra, AMAURY-HORSE SHOW MANAGER PCP - General Nurse Practitioner Family 08/11/19
[2025-03-10 14:36] LABS: Hemoglobin A1C 5.9 % (<5.7)
[2025-03-10 15:00] LABS: Free T4 Free Thyroxine 0.71 ng/dL (0.78-2.19)
[2025-03-10 21:59] LABS: Magnesium 2.2 mg/dL (1.6-2.3)
[2025-03-10 22:31] LABS: Prostate Specific Antigen 7.3 ng/mL (< OR = 4.0); Thyroid Stimulating Hormone 2.180 uIU/mL (0.465-4.680)
== END 2025-03-10 13:21 | disposition home or self-care (01) ==
PROVIDERS: PCP Family Medicine; Visit Provider Family Medicine
DX: R97.20 Elevated prostate specific antigen [PSA] (principal); I10 Essential (primary) hypertension; R73.03 Prediabetes
CPT/HCPCS: 36415; 83036; 83735; 84153; 84439; 84443